=== PATIENT | male | born 1985 | race Caucasian/White ===

== ENCOUNTER 2025-01-21 16:30 | Emergency (ER) | payer BC ==
[2025-01-21] MEDS: Ondansetron 4 MG/2 ML SDV IVPUSH ONE (18:24)
== END 2025-01-21 19:21 | disposition home or self-care (01) ==
LOC: MW.ED 16:30
DX: S43.002A Unspecified subluxation of left shoulder joint, initial encounter (principal); X50.0XXA Overexertion from strenuous movement or load, initial encounter; Y93.89 Activity, other specified
CPT/HCPCS: 23650; 73030; 73060; 73200; 96374; 96375; 99284; A9270; J1171; J2405; J7030